=== PATIENT | female | born 1990 | race African-American/Black ===

== ENCOUNTER 2020-12-28 12:15 | Emergency (ER) | payer OTHER ==
[~2020-12-28] VITALS: Ht 165.1 cm; Wt 65.8 kg
[2020-12-28] MEDS ORDERED: PROTONIX40 MG PO (17:10)
== END 2020-12-28 21:13 | disposition home or self-care (01) ==
LOC: ER 12:15
DX: K29.70 Gastritis, unspecified, without bleeding (principal); R10.84 Generalized abdominal pain

== ENCOUNTER → 2020-12-31 | Emergency (ER) | payer OTHER ==
[~2020-12-31] VITALS: Ht 165.1 cm; Wt 65.8 kg
[~2020-12-31] MED LIST: PROTONIX40 MG PO
== END | disposition left against medical advice (07) ==
LOC: ER 08:41
DX: R10.84 Generalized abdominal pain (principal)